=== PATIENT | female | born 1940 | race Native Hawaiian/Other Pacific Islander ===

== ENCOUNTER 2019-07-24 19:25 | Emergency (ER) | payer OTHER ==
[~2019-07-24] VITALS: Ht 154.9 cm; Wt 39.9 kg
[~2019-07-24 19:25] MED LIST: ALUM-67 PO; AMLODIPINE BESYLATE PO; CYAN10009 IM; DIVA125C PO; FOLI1TAB26 PO; HALO50IN4 IM; HALO5TAB10 PO; RISP0.25 PO; RISP1TAB PO; TYLENOL325 MG PO
[2019-07-24 20:47] LABS: PLATELET COUNT 231 K/uL (152-353); POTASSIUM 2.9 mmol/L (3.6-5.2)
[2019-07-24 22:21] VITALS: BP 126/89; TEMP 99
[2019-07-24] MEDS ORDERED: HYOSCYAMIN0.125 MG/M PO (23:13)
[2019-07-24] MEDS ORDERED: MIRTAZAPINE7.5 MG PO (23:16)
[2019-07-24] MEDS ORDERED: RISP0.25 PO (23:20)
== END 2019-07-24 22:21 | disposition other institution (70) ==
LOC: ED 19:34
PROVIDERS: Emergency Medicine
DX: F28 Other psychotic disorder not due to a substance or known physiological condition (principal); Z03.818 Encounter for observation for suspected exposure to other biological agents ruled out; R53.1 Weakness; Z04.6 Encounter for general psychiatric examination, requested by authority
CPT/HCPCS: 80053; 81000; 85027; 87077; 87086; 87088; 87186; 87635; 93005; 96372; 99283; J0696; U0002